=== PATIENT | female | born 1945 | race Asian ===

== ENCOUNTER → 2016-12-10 | Outpatient (CLI) | payer OTHER ==
[~2016-12-10] MED LIST: ACETAMINOPHEN325 M1 PO; AMIODARONE PO; ASPIRIN325 PO; ATENOLOL 50 MG50 M1 PO; ATENOLOL 50MG T50 M1 PO; BENICAR20 MG PO; BETAHISTINE PO; BISACODYL SUPP10 MG RE; CALCIUM 600 +1 EAC1 PO; COLACE 100 MG100 MG PO; COUMADIN 1MG TAB1 M1 PO; COUMADIN 2 MG TA2 M1 PO; COUMADIN 5 MG TA5 M1 PO; ELIQUIS5 MG PO; FENOFIBRATE67 MG PO; LIPITOR40 MG PO; LOPRESSOR25 PO; MOM PO; NORVASC10 MG PO; PLAVIX 75 MG TA75 M1 PO; PLAVIX 75 MG TA75 MG PO; PRILOSEC 20 MG20 MG PO; SOTALOL 120 MG120 M1 PO; SOTALOL 120 MG120 MG PO; TAMBOCOR PO; TELMISARTAN-AM1 EACH PO; VALIUM5 MG PO
== END ==
LOC: RAD 14:48
DX: M25.571 Pain in right ankle and joints of right foot (principal); W19.XXXA Unspecified fall, initial encounter; Y93.89 Activity, other specified; Y92.89 Other specified places as the place of occurrence of the external cause; Y99.8 Other external cause status

== ENCOUNTER → 2017-10-22 | Outpatient (CLI) | payer OTHER | LOC: RAD 11:28 | DX: M77.31 Calcaneal spur, right foot (principal); M79.89 Other specified soft tissue disorders; M10.9 Gout, unspecified ==

== ENCOUNTER → 2019-04-26 | Outpatient (CLI) | payer OTHER | LOC: ULTRA 10:12 | DX: I10 Essential (primary) hypertension (principal) ==

== ENCOUNTER → 2019-06-02 | Outpatient (CLI) | payer OTHER ==
--- NOTE | 2019-06-02 14:47 | 2DMMODE ---
[facility] [place] [address] [place] [address] 2 D/M-MODE ECHOCARDIOGRAM Name: SHELLY QUIROZ Room #: REG [facility]#: [id number] ������������� Admission: 06/02/19 ������������� Attend Phys: Mike Salgado MD Discharge: ��� ������������� ��� Date of : 41 �������������������� �� Report #: [id number] �������� ��������������������������������������������[id number] THIS REPORT FOR: //name// APPROVED REPORT Study performed: 06/02/2019 10:19:33 EXAM: Comprehensive 2D, Doppler, and color-flow Echocardiogram Patient Location: Out-Patient Status: routine BSA: 1.63 HR: 89 bpm BP: 140/80 mmHg Rhythm: Atrial Fibrillation Other Information Study Quality: Adequate Indications Pacemaker, Afib. Hx: TIA 2D Dimensions RVDd: 29.31 mm IVSd: 10.70 (7-11mm) LVOT Diam: 19.76 (18-24mm) LVDd: 43.54 mm PWd: 11.42 (7-11mm) Ascending Ao: 31.99 (22-36mm) LVDs: 30.10 (25-40mm) Aortic Root: 31.20 mm Volumes Left Atrial Volume (Systole) Single Plane 4CH: 43.88 mL Single Plane 2CH: 55.65 mL Aortic Valve AoV Peak Emory.: 1.16 m/s AO Peak Gr.: 5.35 mmHg LVOT Max P.98 mmHg LVOT Max V: 0.70 m/s BHARATH Vmax: 1.86 cm2 Mitral Valve MV Decel. Time: 191.73 ms MV E Max Emory.: 0.92 m/s Pulmonary Valve [facility] [address] [address] 2 D/M-MODE ECHOCARDIOGRAM Name: SHELLY QUIROZ Room #: REG [facility]#: [id number] ������������� Admission: 06/02/19 ������������� Attend Phys: Mike Salgado MD Discharge: ��� ������������� ��� Date of : 41 �������������������� �� Report #: [id number] �������� ��������������������������������������������[id number] PV Peak Emory.: 0.79 m/s PV Peak Gr.: 2.51 mmHg Tricuspid Valve TR Peak Emory.: 2.03 m/s RAP Estimate: 5.00 mmHg TR Peak Gr.: 16.56 mmHg PA Pressure: 22.00 mmHg Left Ventricle The left ventricle is normal size. There is normal LV segmental wall motion. Mild basal septal hypertrophy is present. Left ventricular systolic function is normal. LVEF is 55-60%. This study is not technically sufficient to allow evaluation of the LV diastolic function due to atrial fibrillation. Right Ventricle The right ventricle is normal size. The right ventricular systolic function is normal. Atria Left atrium is dilated. The right atrium size is normal. Pacemaker lead is present in the right atrium. Aortic Valve Aortic valve is mildly calcified. Trace aortic regurgitation. There is no aortic valvular stenosis. Mitral Valve The mitral valve is normal in structure. There is mitral annular calcification. Trace mitral regurgitation. Tricuspid Valve The tricuspid valve is normal in structure. Trace to mild tricuspid regurgitation. Estimated PAP is 20-25mmHg, Pulmonic Valve The pulmonary valve is normal in structure. Mild pulmonic regurgitation. Great Vessels The aortic root is normal in size. The ascending aorta is normal in size. IVC is normal in size and collapses >50% with inspiration. Pericardium There is no pericardial effusion. [facility] [address] [place] [address] 2 D/M-MODE ECHOCARDIOGRAM Name: SHELLY QUIROZ Room #: REG [facility]#: [id number] ������������� Admission: 06/02/19 ������������� Attend Phys: Mike Salgado MD Discharge: ��� ������������� ��� Date of : 41 �������������������� �� Report #: [id number] �������� ��������������������������������������������[id number] <Conclusion> The left ventricle is normal size. LVEF is 55-60%. Left atrium is dilated. The right atrium size is normal. Pacemaker lead is present in the right atrium. Aortic valve is mildly calcified. Trace aortic regurgitation. The mitral valve is normal in structure. There is mitral annular calcification. Trace mitral regurgitation. The tricuspid valve is normal in structure. Trace to mild tricuspid regurgitation. Estimated PAP is 20-25mmHg, The pulmonary valve is normal in structure. Mild pulmonic regurgitation. There is no pericardial effusion. ��������������������������������������������� <ELECTRONICALLY SIGNED> ���������������������������������������� By: Luis Forte MD ��������������������������������������������� 06/02/19 1446 [id number] 1446 Luis Forte MD /INF
== END ==
LOC: CV 10:03
DX: I08.8 Other rheumatic multiple valve diseases (principal); I48.0 Paroxysmal atrial fibrillation; I49.5 Sick sinus syndrome; Z95.0 Presence of cardiac pacemaker; Z86.73 Personal history of transient ischemic attack (TIA), and cerebral infarction without residual deficits